=== PATIENT | male | born 1945 | race Caucasian/White ===

== ENCOUNTER → 2016-12-21 | Outpatient (CLI) | payer MEDICARE, OTHER ==
--- NOTE | 2016-12-21 08:04 | Diagnostic Imaging Report ---
PROCEDURE: US Gallbladder. TECHNIQUE: Multiple real-time grayscale images were obtained over the right upper quadrant in various projections. INDICATION: Right upper quadrant pain Liver measures 21 cm in length and has mild increased echogenicity. There are two polyps in the gallbladder. There is no wall thickening. There are no mobile stones. Common duct is nondilated. Pancreas is obscured by bowel gas. Right kidney measured 11.4 cm in length and appears normal. There is no ascites. IMPRESSION: Gallbladder polyps. Questionable hepatic steatosis. Dictated by: Dictated on workstation # [id number]
== END ==
LOC: RAD 06:47
PROVIDERS: ATTEND Surgery
DX: K82.4 Cholesterolosis of gallbladder (principal)
CPT/HCPCS: 76705

== ENCOUNTER 2016-12-25 14:49 | Outpatient (CLI) | payer MEDICARE, OTHER ==
[~2016-12-25] VITALS: Ht 182.9 cm; Wt 109.3 kg
[2016-12-25] MEDS ORDERED: AMLO5TAB2 PO (15:19)
[2016-12-25] MEDS ORDERED: LISI1TAB10 PO (15:19)
[2016-12-25] MEDS ORDERED: METF850T2 PO (15:19)
[2016-12-25] MEDS ORDERED: FENO200C PO (15:19)
[2016-12-25] MEDS ORDERED: PIOG30TA38 PO (15:19)
[2016-12-25] MEDS ORDERED: GLYB2.5T4 PO (15:19)
[2016-12-25 15:24] LABS: BASOPHILS % (AUTO) 0 % (0-10); EOSINOPHILS # (AUTO) 0.1 10^3/uL (0.0-0.3); EOSINOPHILS % (AUTO) 1 % (0-10); LYMPHOCYTES # (AUTO) 1.8 X 10^3 (1.0-4.0); LYMPHOCYTES % (AUTO) 32 % (12-44); MEAN CORPUSCULAR HEMOGLOBIN 32 PG (25-34); MEAN CORPUSCULAR HGB CONC 34 G/DL (32-36); MEAN CORPUSCULAR VOLUME 92 FL (80-99); MEAN PLATELET VOLUME 12.2 FL (7.4-10.4); MONOCYTES # (AUTO) 0.3 X 10^3 (0.0-1.0); MONOCYTES % (AUTO) 5 % (0-12); NEUTROPHILS # (AUTO) 3.3 X 10^3 (1.8-7.8); NEUTROPHILS % (AUTO) 61 % (42-75); PLATELET COUNT 186 10^3/uL (130-400); RED BLOOD COUNT 4.16 10^6/uL (4.35-5.85); RED CELL DISTRIBUTION WIDTH 12.3 % (10.0-14.5); WHITE BLOOD COUNT 5.4 10^3/uL (4.3-11.0)
[2016-12-25 15:49] LABS: CALCIUM 9.7 MG/DL (8.5-10.1); CREATININE SERUM 1.73 MG/DL (0.60-1.30)
[2016-12-26] MEDS ORDERED: LANS15CA5 PO (11:00)
[2016-12-26] MEDS ORDERED: OMG1KC PO (11:01)
[2016-12-26] MEDS ORDERED: HYDR-3816 PO (13:11)
== END 2016-12-25 15:15 ==
LOC: PREOP 14:49
PROVIDERS: ATTEND Surgery
DX: Z01.812 Encounter for preprocedural laboratory examination (principal); K82.4 Cholesterolosis of gallbladder; K42.9 Umbilical hernia without obstruction or gangrene
CPT/HCPCS: 36415; 80048; 85025; 87081

== ENCOUNTER 2016-12-26 10:00 | Day surgery (SDC) | payer MEDICARE, OTHER ==
[~2016-12-26] VITALS: Ht 182.9 cm; Wt 109.3 kg
[2016-12-26 10:00] VITALS: BP 159/83
[~2016-12-26 10:00] MED LIST: AMLO5TAB2 PO; FENO200C PO; GLYB2.5T4 PO; LISI1TAB10 PO; METF850T2 PO; PIOG30TA38 PO
[2016-12-26] MEDS ORDERED: ROCURONIUM 50 MG/5 ML (ZEMURON) VIAL IV ONE (10:45)
[2016-12-26] MEDS ORDERED: LIDOCAINE PF 2% 5 ML (XYLOCAINE) VIAL ONE (10:45)
[2016-12-26] MEDS ORDERED: ONDANSETRON 4 MG/2 ML (SDV) Z0FRAN ONE (10:45)
[2016-12-26] MEDS ORDERED: proPOfol 200 MG/20 ML (DIPRIVAN) VIAL IV ONE (10:45)
[2016-12-26] MEDS ORDERED: LIDOCAINE JELLY 2% (XYLOCAINE) 5 ML TUBE ONE (10:45)
[2016-12-26] MEDS ORDERED: MIDAZOLAM 2 MG/2 ML (VERSED) VIAL ONE (10:45)
[2016-12-26] MEDS ORDERED: fentaNYL INJECTION 100 MCG/2 ML AMP ONE (10:45)
[2016-12-26] MEDS ORDERED: LANS15CA5 PO (11:00)
[2016-12-26] MEDS ORDERED: FAMOTIDINE 20MG/2ML IV (PEPCID) IV ONE (11:00)
[2016-12-26] MEDS ORDERED: OMG1KC PO (11:01)
[2016-12-26] MEDS ORDERED: HYDROcodone/APAP 5 MG/325 MG (LORTAB) TAB PO ONE (11:15)
[2016-12-26] MEDS ORDERED: ceFAZolin 1 GM/NS 50 ML IVPB IV ONE ×2 (11:15)
[2016-12-26] MEDS ORDERED: ACETAMINOPHEN 325 MG TABLET/CAPLET (TYLENOL) PO PRN (11:15)
[2016-12-26] MEDS ORDERED: morphine INJ 10 MG/ML 1ML (SYR OR VIAL) IVP PRN ×2 (11:15→13:15)
[2016-12-26] MEDS ORDERED: ONDANSETRON 4 MG/2 ML (SDV) Z0FRAN IVP PRN ×2 (11:15→13:15)
--- NOTE | 2016-12-26 11:15 | Progress Note-Pre Operative ---
Pre-Operative Progress Note H&P Reviewed The H&P was reviewed, patient examined and no changes noted. Date Seen by Provider: Dec 26, 2016 Time Seen by Provider: 11:10 Date H&P Reviewed: Dec 26, 2016 Time H&P Reviewed: 11:15 Pre-Operative Diagnosis: Gallbladder polyps, symptomatic reducible umbilical hernia MARTELL HARRY APRN Dec 26, 2016 11:15 am
[2016-12-26] MEDS: LACTATED RINGERS 1,000 ML IV PRN ×2 (11:19→12:00)
[2016-12-26] MEDS ORDERED: BUP/EPI 0.5% 1:200,000 (MARCAINE) 10ML VIAL IJ ONE (12:08)
[2016-12-26] MEDS ORDERED: morphine INJ 10 MG/ML 1ML (SYR OR VIAL) ONE (12:39)
[2016-12-26] MEDS ORDERED: LACTATED RINGERS 0 ML IV ONE (12:53)
[2016-12-26] MEDS ORDERED: NEOSTIGMINE (BLOXIVERZ ) 1 MG/1ML 10 ML VIAL ONE (12:53)
[2016-12-26] MEDS ORDERED: GLYCOPYRROLATE 0.2 MG/ML (ROBINUL) 2 ML VIAL ONE (12:53)
--- NOTE | 2016-12-26 13:09 | Progress Note-Post Operative ---
Post-Operative Progess Note Surgeon (s)/Spring Floor Service Worker (s) Surgeon BUBBA TATE MD Spring Floor Service Worker: nicholas long KNOWLEDGE ANALYST Pre-Operative Diagnosis Gallbladder polyps, symptomatic reducible umbilical hernia Post-Operative Diagnosis chronic calculous cholecystitis, symptomatic umbilical lipoma Procedure & Operative Findings Date of Procedure 12/26/16 Procedure Performed/Findings excision lipoma abdominal wall, laparoscopic cholecystectomy Anesthesia Type GET Estimated Blood Loss Estimated blood loss (mL): minimal Specimens/Packing Specimens Removed abdominal wall lipoma, gallbladder BUBBA TATE MD Dec 26, 2016 1:09 pm
[2016-12-26] MEDS ORDERED: SEVOFLURANE (ULTANE) 15 ML INHAL SOLN ONE (13:10)
[2016-12-26] MEDS ORDERED: HYDR-3816 PO (13:11)
--- NOTE | 2016-12-26 13:12 | Discharge Inst-Surgical ---
D/C Lap Instructions-LEA New, Converted, or Re-Newed RX: RX on Chart Follow Up Appt in 2 weeks Activity as tolerated No driving for 24 hours No driving while on pain medications Incentive Spirometry use every 2 hours while awake Regular Diet Symptoms to Report: Fever over 101 degree F, Nausea/Vomiting Infection Signs and Symptoms to report: Increased redness, Foul odor of wound, Increased drainage Bathing instructions: May shower Operative Area Clean/Dry; Keep incision clean/dry If any problems/questions: Contact your physician or go to Emergency Room BUBBA TATE MD Dec 26, 2016 1:12 pm
[2016-12-26] MEDS ORDERED: MEPERIDINE (DEMEROL) INJ 50 MG/ML IVP PRN (13:15)
[2016-12-26 14:10] VITALS: BP 154/79
[2016-12-26] MEDS ORDERED: HYDROcodone/APAP 5 MG/325 MG (LORTAB) TAB ONE (14:19)
[2016-12-26 14:45] VITALS: BP 137/69
[2016-12-26 15:20] VITALS: BP 142/72
[2016-12-26 15:40] VITALS: BP 142/72
--- NOTE | 2016-12-27 06:39 | OPERATIVE REPORT ---
DATE OF SERVICE: 12/26/2016 ATTENDING PRIMARY CARE PHYSICIAN: Dr. Uriostegui. PREOPERATIVE DIAGNOSES: 1. Symptomatic gallbladder polyp. 2. Symptomatic umbilical hernia. POSTOPERATIVE DIAGNOSES: 1. Chronic calculous cholecystitis. 2. Symptomatic umbilical lipoma, approximately 1.5 cm in size. PROCEDURE: 1. Excision of lipoma, abdominal wall, 1.5 cm in size. 2. Laparoscopic cholecystectomy. SURGEON: Dr. Tate. CLERICAL TRANSCRIBER: Anjum Vega APRN. ANESTHESIA: General endotracheal. ESTIMATED BLOOD LOSS: Minimal. FINDINGS: Lipoma abdominal wall just superior to the umbilicus. No umbilical hernia was identified. Chronic gallbladder wall inflammation as well as dilatation. After removal and backtable examination, there were small gallstones identified. DISPOSITION: The patient tolerated the procedure well. INDICATIONS FOR PROCEDURE: The patient is a 71-year-old male who has had issues with pain in the right upper abdominal quadrant with bloating for the past few years. He reports that this was initially mild; however, has worsened in the past several months. He also has developed pain and an area of swelling in the supraumbilical region. This was identified and examined in the office and it appeared to be a nonreducible umbilical hernia, which was tender to palpation. Upon further examination, there was no hernia identified and the palpable lesion was a symptomatic lipoma. DESCRIPTION OF PROCEDURE: The patient was brought to the operating room, laid supine on the table. After adequate IV pain and sedative medications and general endotracheal intubation, the abdomen was prepped and draped in a standard surgical fashion. A 0.5% Marcaine with epinephrine was used to anesthetize the overlying skin in the left upper abdominal quadrant and a small transverse skin incision made using a 15 blade. A 0 silk suture was applied to the medial aspect of the incision for retraction and a Veress needle inserted with a low opening pressure of 0 mmHg and the abdomen was then insufflated to 15 mmHg pressure. The Veress needle removed and a 5 mm Xcel trocar placed followed by a 5 mm 45-degree angle laparoscope visualizing the peritoneal cavity. A 4-quadrant abdominal exploration was performed. Upon palpation, we could not laparoscopically identify an umbilical hernia. Upon further palpation of the external abdominal wall, the lesion was still identified and approximately 1.5 cm in size. The area supraumbilically was then anesthetized and a transverse skin incision made using a 15 blade. This area was then explored and a lipoma of the abdominal wall just above the fascia was identified and fully excised using Metzenbaum scissors and sent to pathology. Again, no hernia was identified. A 10 mm port was then placed under direct visualization through the skin incision. In a similar manner, a right upper abdominal quadrant 5 mm port was placed. The patient was then placed in a reverse Trendelenburg position and plane right side up, left side down. The fundus of the gallbladder was then retracted anteriorly and superiorly. A [id number] liver steatosis was identified as well. The hepatoduodenal ligament was then opened using electrocautery on the hook instrument as well as blunt dissection. The entire critical view of safety was identified including the triangle of Calot as well as the cystic duct and artery going into the gallbladder as well as the liver behind the proximal gallbladder. A timeout was then taken and the cystic duct and artery were then clipped proximally and distally and cut with EndoShears. The gallbladder was then dissected off the liver bed using electrocautery on the hook instrument with visualization of good hemostasis as well as no leaking ducts of Luschka. The gallbladder was removed through the 10 mm port site using an EndoCatch bag. The 10 mm port site fascia and peritoneum were then closed under direct visualization using a Carlito-Laila device and 0 Vicryl suture. Abdomen was desufflated and the remaining ports removed. All skin incisions were closed using 4-0 Monocryl running subcuticular suture. Wounds were then cleaned and covered with Dermabond. The patient tolerated the procedure well. We will start IV and oral pain medication as well as a clear liquid diet. Once he is tolerating clears and has good pain control with oral pain medications and ambulating well, we will discharge him home. We will also instruct him to refrain from heavy lifting and exertion for the next 2 weeks. Job ID: [id number] DocumentID: [id number] Dictated Date: 12/26/2016 13:20:56 Proofing Machine Operator Date: 12/27/2016 01:38:01 Dictated By: BUBBA TATE MD
== END 2016-12-26 15:40 | disposition home or self-care (01) ==
LOC: SDC 10:00
PROVIDERS: ATTEND Surgery
DX: K80.10 Calculus of gallbladder with chronic cholecystitis without obstruction (principal); D17.39 Benign lipomatous neoplasm of skin and subcutaneous tissue of other sites; K76.0 Fatty (change of) liver, not elsewhere classified; I10 Essential (primary) hypertension; E11.9 Type 2 diabetes mellitus without complications; E78.1 Pure hyperglyceridemia; Z79.84 Long term (current) use of oral hypoglycemic drugs; Z79.899 Other long term (current) drug therapy
CPT/HCPCS: 82962; 94664

== ENCOUNTER → 2018-12-18 | Outpatient (CLI) | payer MEDICARE, OTHER ==
[~2018-12-18] MED LIST changes: -AMLO5TAB2 PO; +AMLO5TAB9 PO; +HYDR-34 PO; +LANS15CA5 PO; +METF-398 PO; -METF850T2 PO; +OMG1KC PO
--- NOTE | 2018-12-18 10:21 | Diagnostic Imaging Report ---
EXAM: MRI THORACIC SPINE W/O CON INDICATION: Low back pain. Right-sided sciatica. COMPARISON: None. FINDINGS: Normal alignment. Vertebral body heights are preserved. Moderate diffuse degenerative endplate changes. Bone marrow signal is otherwise unremarkable. Small central disc protrusion at T5-T6 results in no substantial spinal canal narrowing. No high-grade neural foraminal narrowing. No abnormal signal in the thoracic spinal cord. The visualized paravertebral soft tissues are unremarkable. IMPRESSION: Moderate spondylotic changes in the thoracic spine results in no high-grade neural impingement. No acute findings. No abnormal signal in the thoracic spinal cord. Dictated by: Dictated on workstation # [id number]
--- NOTE | 2018-12-18 10:40 | Diagnostic Imaging Report ---
PROCEDURE: MRI lumbar spine. TECHNIQUE: Multiplanar, multisequence MRI of the lumbar spine was performed without contrast. INDICATION: Mid and low back pain. COMPARISON: No prior MRI lumbar spine studies are available for comparison. FINDINGS: Curvature of the lumbar spine is normal. There is minimal retrolisthesis of L3 on L4 and L4 on L5 with grade I spondylolisthesis of L5 on S1. There are pars defects bilaterally at the L5-S1 level. The vertebral body heights are maintained. No acute compression fracture is identified. No geographic marrow lesion is detected. There is degenerative disc disease at all levels with variable disc space narrowing and desiccation. The conus is unremarkable at the T12-L1 level. T12-L1: The central canal is widely patent. Neural foramina are patent. L1-L2: Broad based disc/osteophyte complex flattens the ventral thecal sac. Central canal is patent. There is moderate lateral recess narrowing bilaterally. There is also moderate bilateral neural foraminal stenosis. L2-L3: Hypertrophic facet changes and ligamentous thickening as well as broad-based disc/osteophyte complex results in moderate trefoil stenosis to the central canal. There is severe bilateral lateral recess stenosis. There is also moderate bilateral neural foraminal stenosis. L3-L4: Hypertrophic facet changes and ligamentous thickening with broad-based disc/osteophyte complex results in significant trefoil stenosis to the central canal. There is severe bilateral lateral recess stenosis. Mild bilateral neural foraminal stenosis is seen. L4-L5: Broad based disc/osteophyte complex flattens the ventral thecal sac. Central canal remains patent. There is severe bilateral lateral recess stenosis. Moderate bilateral neural foraminal stenosis is seen. L5-S1: Marked hypertrophic facet changes are noted. Central canal is patent. There is severe bilateral neural foraminal stenosis. Paraspinous tissues are unremarkable. IMPRESSION: Multilevel lumbar spondylosis with multilevel central canal, lateral recess and neural foraminal stenosis described level by level above. There are pars defects at the L5-S1 level with grade I spondylolisthesis. No acute compression fracture is detected. Dictated by: Dictated on workstation # [id number]
== END ==
LOC: RAD 09:05
PROVIDERS: ATTEND Family Medicine
DX: M47.814 Spondylosis without myelopathy or radiculopathy, thoracic region (principal); M54.40 Lumbago with sciatica, unspecified side; R20.2 Paresthesia of skin; M43.17 Spondylolisthesis, lumbosacral region; M48.07 Spinal stenosis, lumbosacral region; M47.816 Spondylosis without myelopathy or radiculopathy, lumbar region
CPT/HCPCS: 72146; 72148